=== PATIENT | female | born 1970 | race Caucasian/White ===

== ENCOUNTER 2017-07-28 15:53 | Emergency (ER) | payer BC, OTHER ==
--- NOTE | 2017-07-28 16:18 | Emergency Department Record ---
History of Present Illness - General Chief complaint: Extremity Problem Stated complaint: RT ELBOW PAIN Time Seen by Provider: 07/28/17 16:01 Source: Patient, RN notes reviewed Mode of Arrival: Ambulatory - History of Present Illness Initial comments: hit her right elbow on a door at school two weeks ago, heavy wood door and it was closing. black and blue and still painful and she now has numbness and full range of motion and pain in the elbow with supination hand Onset/Timin -: Week(s) Location: Right, Elbow History of Same: No Severity scale (1-10): 5 Quality: Burning, Other Consistency: Constant Improves with: Cold therapy, Medication, Rest Worsens with: Exertion, Palpation Associated Symptoms: Denies other symptoms - Related Data Allergies Allergy/AdvReac Type Severity Reaction Status Date / Time codeine Allergy Severe HIVES Verified 07/28/17 15:55 Penicillins Allergy Intermediate NAUSEA AND Verified 07/28/17 15:55 VOMITING Travel Screening - Travel/Exposure Within Last 30 Days Have you traveled within the last 30 days?: No - Travel/Exposure Within Last Year Have you traveled outside the [place] in the last year?: No - Additonal Travel Details Have you been exposed to anyone with a communicable illness?: No - Travel Symptoms Symptom Screening: None Review of Systems Reviewed: No additional complaints except as noted below Constitutional: Reports: As per HPI. Denies: Chills, Fever, Malaise, Night sweats, Weakness, Weight change Eyes: Reports: As per HPI. Denies: Eye discharge, Eye pain, Photophobia, Vision change ENT: Reports: As per HPI. Denies: Congestion, Dental pain, Ear pain, Epistaxis , Hearing loss, Throat pain Respiratory: Reports: As per HPI. Denies: Cough, Dyspnea, Hemoptysis, Stridor, Wheezes Cardiovascular: Reports: As per HPI. Denies: Arrhythmia, Chest pain, Dyspnea on exertion, Edema, Murmurs, Orthopnea, Palpitations, Paroxysmal nocturnal dyspnea, Rheumatic Fever, Syncope Endocrine: Reports: As per HPI. Denies: Fatigue, Heat or cold intolerance, Polydipsia, Polyuria Gastrointestinal: Reports: As per HPI. Denies: Abdominal pain, Constipation, Diarrhea, Hematemesis, Hematochezia, Melena, Nausea, Vomiting Genitourinary: Reports: As per HPI. Denies: Abnormal menses, Discharge, Dyspareunia, Dysuria, Frequency, Hematuria, Incontinence, Retention, Urgency Musculoskeletal: Reports: As per HPI, Other (right elbow pain). Denies: Arthralgia, Back pain, Gout, Joint swelling, Myalgia, Neck pain Skin: Reports: As per HPI. Denies: Bruising, Change in color, Change in hair/ nails, Lesions, Pruritus, Rash Neurological: Reports: As per HPI. Denies: Abnormal gait, Confusion, Headache, Numbness, Paresthesias, Seizure, Tingling, Tremors, Vertigo, Weakness Psychiatric: Reports: As per HPI. Denies: Anxiety, Auditory hallucinations, Depression, Homicidal thoughts, Suicidal thoughts, Visual hallucinations Hematological/Lymphatic: Reports: As per HPI. Denies: Anemia, Blood Clots, Easy bleeding, Easy bruising, Swollen glands Past Medical History - SOCIAL HISTORY Smoking Status: Never smoker Alcohol Use: Occasional Drug Use: None - RESPIRATORY Hx Respiratory Disorders: Yes Hx Asthma: Yes - CARDIOVASCULAR Hx Cardio Disorders: No - NEURO Hx Neuro Disorders: No - GI Hx GI Disorders: No - Hx Genitourinary Disorders: No - ENDOCRINE Hx Endocrine Disorders: No - MUSCULOSKELETAL Hx Musculoskeletal Disorders: No - PSYCH Hx Psych Problems: No - HEMATOLOGY/ONCOLOGY Hx Hematology/Oncology Disorders: Yes Hx Anemia: Yes Family Medical History Any Significant Family History?: No Physical Exam - General General Appearance: Alert, Oriented x3, Cooperative, No acute distress - Head Head exam: Normal inspection - Eye Eye exam: Normal appearance, PERRL Pupils: Normal accommodation - ENT ENT exam: Normal exam, Mucous membranes moist, Normal external ear exam, Normal orophraynx, TM's normal bilaterally Ear exam: Normal external inspection. negative: External canal tenderness Nasal Exam: Normal inspection. negative: Discharge, Sinus tenderness Mouth exam: Normal external inspection, Tongue normal Teeth exam: Normal inspection. negative: Dental caries Throat exam: Normal inspection. negative: Tonsillar erythema, Tonsillar exudate - Neck Neck exam: Normal inspection, Full ROM. negative: Tenderness - Respiratory Respiratory exam: Normal lung sounds bilaterally. negative: Respiratory distress - Cardiovascular Cardiovascular Exam: Regular rate, Normal rhythm, Normal heart sounds - GI/Abdominal GI/Abdominal exam: Soft, Normal bowel sounds. negative: Tenderness - Rectal Rectal exam: Deferred - exam: Deferred - Extremities Extremities exam: Normal inspection, Full ROM, Normal capillary refill, Tenderness (bruise over lateral malleolus) - Back Back exam: Reports: Normal inspection, Full ROM. Denies: Muscle spasm, Rash noted, Tenderness - Neurological Neurological exam: Alert, Normal gait, Oriented X3, Reflexes normal - Psychiatric Psychiatric exam: Normal affect, Normal mood - Skin Skin exam: Dry, Intact, Normal color, Warm Course Vital Signs 07/28/17 16:00 Temperature 98.4 F Pulse Rate 72 Respiratory 18 Rate Blood Pressure 146/95 Pulse Ox 100 Medical Decision Making - Data Complexity MDM Data: X-Ray Ordered and/or Reviewed (negative xray of elbow) Disposition Clinical Impression: Contusion of right elbow Qualifiers: Encounter type: initial encounter Qualified Code(s): S50.01XA - Contusion of right elbow, initial encounter Disposition: Home, Self-Care Condition: (1) Good Instructions: Musculoskeletal Pain (ED) Additional Instructions: follow up with family Dr. or school physician. tylenol every 6 hours as needed Forms: Patient Portal Access Time of Disposition: 16:29 Quality - Quality Measures Quality Measures: N/A - Blood Pressure Screening Does Patient Have Any of the Following: No Blood Pressure Classification: Hypertensive Reading Systolic Measurement: 146 Diastolic Measurement: 95 Screening for High Blood Pressure: < First Hypertensive BP, F/U Documented > [ G8950] First Hypertensive Follow-up Interventions: Referral to alternative/primary care provider.
--- NOTE | 2017-07-29 08:23 | RADIOLOGY REPORT ---
EXAM: RIGHT ELBOW HISTORY: RIGHT ELBOW PAIN FROM A DOOR SLAM. TECHNIQUE: Three views of the right elbow were obtained. Comparison: None. Encounter: Initial. FINDINGS: No definite fracture, dislocation, or joint effusion identified involving the right elbow. IMPRESSION: THE RIGHT ELBOW APPEARS ESSENTIALLY NEGATIVE WITH NO DEFINITE FRACTURE IDENTIFIED. JOB NUMBER: [id number] MTDD
== END 2017-07-28 17:35 | disposition home or self-care (01) ==
LOC: ER 15:53
DX: S50.01XA Contusion of right elbow, initial encounter (principal); R20.0 Anesthesia of skin; W22.8XXA Striking against or struck by other objects, initial encounter; Y92.219 Unspecified school as the place of occurrence of the external cause; Y99.0 Civilian activity done for income or pay
CPT/HCPCS: 99283

== ENCOUNTER 2018-10-15 11:41 | Emergency (ER) | payer BC ==
--- NOTE | 2018-10-15 12:01 | Emergency Department Record ---
History of Present Illness - General Chief complaint: Extremity Problem Stated complaint: FALL/R ARM INJURY Time Seen by Provider: 10/15/18 11:56 Source: Patient Mode of Arrival: Ambulatory Limitations: No limitations - History of Present Illness Initial comments: The patient fell off a hoverboard and injured her R arm. The pain is mainly in the R mid humerus. She denies any shoulder or elbow pain or any other injuries. MD Complaint: Extremity pain Onset/Timin -: Hour(s) Location: Right, Arm History of Same: No Radiation: Distal Severity scale (1-10): 10 Quality: Burning Consistency: Constant Improves with: Nothing Worsens with: Exertion Associated Symptoms: Denies other symptoms - Related Data Home Medications Medication Instructions Recorded Confirmed Last Taken Estrogens, Conjugated [Premarin] 0.625 mg PO DAILY 10/15/18 10/15/18 10/15/18 Allergies Allergy/AdvReac Type Severity Reaction Status Date / Time codeine Allergy Severe HIVES Verified 10/15/18 12:34 Penicillins Allergy Intermediate NAUSEA AND Verified 10/15/18 12:34 VOMITING Travel Screening - Travel/Exposure Within Last 30 Days Have you traveled within the last 30 days?: No - Travel/Exposure Within Last Year Have you traveled outside the [place] in the last year?: No - Additonal Travel Details Have you been exposed to anyone with a communicable illness?: No - Travel Symptoms Symptom Screening: None Review of Systems Constitutional: Denies: Chills, Fever Eyes: Denies: Eye discharge ENT: Denies: Congestion Respiratory: Denies: Cough, Dyspnea Past Medical History - SOCIAL HISTORY Smoking Status: Never smoker Alcohol Use: Rare Drug Use: None - RESPIRATORY Hx Respiratory Disorders: Yes Hx Asthma: Yes - CARDIOVASCULAR Hx Cardio Disorders: No - NEURO Hx Neuro Disorders: No - GI Hx GI Disorders: No - Hx Genitourinary Disorders: No Hx Bladder Problem: Yes Hx Kidney Stones: Yes - ENDOCRINE Hx Endocrine Disorders: No - MUSCULOSKELETAL Hx Musculoskeletal Disorders: No - PSYCH Hx Psych Problems: No Hx Anxiety: Yes - HEMATOLOGY/ONCOLOGY Hx Hematology/Oncology Disorders: Yes Hx Anemia: Yes Family Medical History Any Significant Family History?: Yes Hx Anxiety: Father Hx Heart Disease: Father, Mother Hx Kidney Disease: Brother/Sister Physical Exam - General General Appearance: Alert, Cooperative, No acute distress - Head Head exam: Atraumatic, Normocephalic - Eye Eye exam: Normal appearance - Neck Neck exam: Normal inspection, Full ROM. negative: Tenderness - Extremities Extremities exam: Normal inspection (There is no swelling or bruising appreciated.), Normal capillary refill, Tenderness (There is significant tenderness to the R mid humerus.), Other (The R arm is NVI.). negative: Full ROM (There is decreased full flexion, extension and abduction of the R shoulder due to pain. The patient is able to abduct to 90 degrees with mild pain. ), Joint swelling Course Vital Signs 10/15/18 11:48 Temperature 98.0 F Pulse Rate 91 H Respiratory 20 Rate Blood Pressure 147/87 Pulse Ox 98 - Reevaluation(s) Reevaluation #1: I did discuss the neg xrays with the patient and the need for F/U if not better. 10/15/18 12:54 Medical Decision Making - Data Complexity MDM Data: X-Ray Ordered and/or Reviewed - Radiology Data Radiology results: Report reviewed (R Humerus: Neg for fx or dislocation.) Disposition Disposition: Discharge Clinical Impression: Contusion of arm, right Qualifiers: Encounter type: initial encounter Qualified Code(s): S40.021A - Contusion of right upper arm, initial encounter Disposition: Home, Self-Care Condition: (2) Stable Instructions: Arm Pain (ED) Additional Instructions: Please wear the R arm sling for 5-7 days and ice the R arm when possible. Take Tylenol or Motrin for pain and please see your family doctor if not better in 5 days. Forms: Patient Portal Access Time of Disposition: 12:56 Quality - Quality Measures Quality Measures: N/A - Blood Pressure Screening View Details: Yes Does Patient Have Any of the Following: No Blood Pressure Classification: Pre-Hypertensive BP Reading Systolic Measurement: 147 Diastolic Measurement: 87 Screening for High Blood Pressure: < Pre-Hypertensive BP, F/U Documented > [ G8950] Pre-Hypertensive Follow-up Interventions: Referral to alternative/primary care provider.
[2018-10-15] MEDS ORDERED: KETOROLAC 30 MG/ML VIAL IM ONE (12:31)
--- NOTE | 2018-10-17 09:04 | RADIOLOGY REPORT ---
EXAM: RIGHT HUMERUS, TWO VIEWS HISTORY: FROZEN SHOULDER ABOUT FIVE YEARS PRIOR. FELL OFF HOVER BOARD. PAIN. TECHNIQUE: Two views of the right humerus were obtained. FINDINGS: No fracture or malalignment is seen. The soft tissues are unremarkable. IMPRESSION: NO ACUTE OSSEOUS ABNORMALITY RIGHT HUMERUS. JOB NUMBER: [id number] [facility]
== END 2018-10-15 13:02 | disposition home or self-care (01) ==
LOC: ER 11:41
DX: S40.021A Contusion of right upper arm, initial encounter (principal); V00.181A Fall from other rolling-type pedestrian conveyance, initial encounter
CPT/HCPCS: 96372; 99283; 99284; J1885